=== PATIENT | female | born 1990 | race Two or more races ===

== ENCOUNTER 2024-09-26 10:38 | Emergency (ER) | payer OTHER ==
[~2024-09-26] VITALS: Ht 157.5 cm; Wt 61.2 kg
[2024-09-26 10:57] VITALS: BP 104/64; TEMP 98.1; O2SAT 100
== END 2024-09-26 12:36 | disposition home or self-care (01) ==
LOC: ER 11:13
DX: L02.412 Cutaneous abscess of left axilla (principal); Z88.0 Allergy status to penicillin; Z60.2 Problems related to living alone